=== PATIENT | female | born 1980 | race Caucasian/White ===

== ENCOUNTER → 2020-02-09 | Outpatient (CLI) | payer MEDICAID, OTHER ==
[~2020-02-09] MED LIST: ACDPT; HYDR1TAB PO; IBP600T1 PO; MTR250T PO; MUPI1OIN5 NS; OXYC-12 PO; PREN1TAB39 PO; PREN1TAB64; TERC45CR VG; ZLP10T PO
--- NOTE | 2020-02-09 16:53 | Diagnostic Imaging Report ---
EXAM: FACIAL BONES 3 VIEW OR MORE INDICATION: Left orbital edema. COMPARISON: None. FINDINGS: No fracture or malalignment. No suspicious osteoblastic or lytic lesions. The paranasal sinuses are well aerated. No radiopaque foreign bodies. IMPRESSION: Negative facial bone radiographs. Dictated by: Dictated on workstation # [id number]
--- NOTE | 2020-02-09 16:53 | Diagnostic Imaging Report ---
EXAM: CERVICAL SPINE 3 VIEW OR LESS INDICATION: Neck pain. COMPARISON: None. FINDINGS: Normal alignment. Vertebral body heights preserved. No fractures. Normal prevertebral soft tissues. Minimal degenerative endplate changes. IMPRESSION: Minimal spondylotic changes in the cervical spine. No acute radiographic findings. Dictated by: Dictated on workstation # [id number]
== END ==
LOC: RAD FS 15:49
PROVIDERS: ATTEND Nurse Practitioner
DX: M47.892 Other spondylosis, cervical region (principal); H05.222 Edema of left orbit; S09.92XA Unspecified injury of nose, initial encounter; R68.84 Jaw pain; Z91.410 Personal history of adult physical and sexual abuse
CPT/HCPCS: 70150; 72040

== ENCOUNTER 2020-03-27 10:22 | Emergency (ER) | payer MEDICAID, OTHER ==
[~2020-03-27] VITALS: Ht 170.2 cm; Wt 86.2 kg
[2020-03-27] MEDS ORDERED: NS IV 1000 ML 1,000 ML IV SCH (11:00)
[2020-03-27] MEDS ORDERED: KETOROLAC 30 MG/ML VIAL IVP ONE (11:00)
[2020-03-27] MEDS ORDERED: HYDROcodone/APAP 5 MG/325 MG (LORTAB) TAB PO ONE (11:00)
[2020-03-27 11:21] LABS: HEMATOCRIT 38 % (35-52); HEMOGLOBIN 12.7 G/DL (11.5-16.0); MEAN CORPUSCULAR HEMOGLOBIN 29 PG (25-34); MEAN CORPUSCULAR VOLUME 88 FL (80-99); WHITE BLOOD COUNT 11.3 10^3/uL (4.3-11.0)
[2020-03-27 11:22] LABS: BASOPHILS # (AUTO) 0.1 10^3/uL (0.0-0.1); BASOPHILS % (AUTO) 1 % (0-10); EOSINOPHILS # (AUTO) 0.2 10^3/uL (0.0-0.3); EOSINOPHILS % (AUTO) 2 % (0-10); LYMPHOCYTES # (AUTO) 1.9 X 10^3 (1.0-4.0); LYMPHOCYTES % (AUTO) 17 % (12-44); MEAN CORPUSCULAR HGB CONC 33 G/DL (32-36); MEAN PLATELET VOLUME 10.6 FL (7.4-10.4); MONOCYTES # (AUTO) 1.1 X 10^3 (0.0-1.0); MONOCYTES % (AUTO) 10 % (0-12); NEUTROPHILS % (AUTO) 70 % (42-75); PLATELET COUNT 180 10^3/uL (130-400)
--- NOTE | 2020-03-27 11:29 | ED General ---
General Chief Complaint: Oral/Throat Problems Stated Complaint: SAUNDRA FOOT PAIN; SORE THROAT Nursing Triage Note: Patient reports sudden onset of generalized joint aches, generalized weakness, chills, sore throat, nasal congestion/drainage, and cough 2 days ago. She denies any recent sick contacts. Nursing Sepsis Screen: No Definite Risk History of Present Illness Date Seen by Provider: Mar 27, 2020 Time Seen by Provider: 11:25 Initial Comments Patient presenting to the emergency department for evaluation of multiple complaints including generalized arthralgias myalgias cough sore throat chills and generalized weakness. She said all the symptoms started Wednesday evening approximately 36 hours ago and have persisted. She says she has having difficulty walking as she has pain in her right foot as well as her left ankle. She denies any known trauma or overuse. She has had no measured fevers and she denies any shortness of breath chest pain production to her cough nausea vomiting diarrhea headache neck stiffness or dysuria. She does have an approximate 2 x 2 centimeter reddish adolfo on the top of her right foot that appears to be possible bite wound with surrounding cellulitis that she says is painful to palpation and she says it is making her foot hurt more. And she also appears to have some bite wounds around her left Achilles tendon that she says she has been itching it. She says she cannot go to work because it is too painful to walk. She denies having any medical problems and says that her only medication is an antidepressant. She is in no obvious distress with normal vital signs including a heart rate of 80 and oxygen saturation of 100%. Allergies and Home Medications Allergies Coded Allergies: Moxifloxacin (Unverified Allergy, Unknown, 01/13/10) Home Medications Ibuprofen 600 Mg Tab, 600 MG PO Q6H, (Reported) 1 tab p.o. every 6 hrs as needed for pain. Oxycodone Hcl/Acetaminophen 1 Each Tablet, 1-2 EACH PO Q 4-6HRS, (Reported) 1-2 TAB P.O. EVERY 4-6 HRS NEEDED FOR PAIN. Vits W-Ca,Fe,Fa(<1MG) 1 Each Tablet, 1 EACH PO DAILY, (Reported) Zolpidem Tartrate 10 Mg Tab, 10 MG PO HS, (Reported) Patient Home Medication List Home Medication List Reviewed: Yes Review of Systems Review of Systems Constitutional: chills, malaise, weakness EENTM: nose congestion, throat pain Respiratory: cough Cardiovascular: no symptoms reported Gastrointestinal: no symptoms reported Genitourinary: no symptoms reported Musculoskeletal: joint pain, muscle pain Skin: lesions, lumps Psychiatric/Neurological: No Symptoms Reported All Other Systems Reviewed Negative Unless Noted: Yes Past Htlrwbf-Vnzasz-Dvfhny Hx Patient Social History Alcohol Use: Denies Use Smoking Status: Never a Smoker 2nd Hand Smoke Exposure: No Recent Infectious Disease Expo: No Recent Hopitalizations: No Seasonal Allergies Seasonal Allergies: No Past Medical History Surgeries: Yes Section Respiratory: No Cardiac: No Neurological: No Reproductive Disorders: No Genitourinary: No Gastrointestinal: No Musculoskeletal: No Endocrine: No HEENT: No Cancer: No Psychosocial: No Integumentary: No Blood Disorders: No Physical Exam Vital Signs Vital Signs - First Documented 03/27/20 10:27 Temp 36.2 Pulse 79 Resp 18 B/P (MAP) 126/78 (94) Pulse Ox 98 O2 Delivery Room Air Capillary Refill : Less Than 3 Seconds Height, Weight, BMI Height: '" Weight: lbs. oz. kg; 29.00 BMI Method: General Appearance: No Apparent Distress, WD/WN HEENT: PERRL/EOMI, TMs Normal, Pharynx Normal (Tonsils are both present and prominent however they are not erythematous or have purulence on it and her pharynx appeared normal) Respiratory: Lungs Clear, No Respiratory Distress Cardiovascular: Regular Rate, Rhythm Gastrointestinal: Non Tender, Soft Extremity: Normal Capillary Refill, Normal Range of Motion Neurologic/Psychiatric: Alert, Oriented x3 Skin: Warm/Dry, Other (2 x 2 centimeter area of erythema on the top of the right foot that is painful to palpation but not indurated or particularly hard. 3 small nonvesicular lesions on the left Achilles region that do not appear to be infected) Progress/Results/Core Measures Suspected Sepsis Recent Fever Within 48 Hours: Yes Infection Criteria Present: Suspected New Infection New/Unexplained Altered Menta: No Sepsis Screen: No Definite Risk SIRS Temperature: Pulse: 79 Respiratory Rate: 18 Laboratory Tests 03/27/20 11:00: White Blood Count 11.3H Blood Pressure 126 /78 Mean: 94 Laboratory Tests 03/27/20 11:00: Creatinine 0.77, Platelet Count 180, Total Bilirubin 0.5 Results/Orders Lab Results Laboratory Tests Test 03/27/20 11:00 03/27/20 11:05 03/27/20 11:15 Range/Units White Blood Count 11.3 H 4.3-11.0 10^3/uL Red Blood Count 4.34 L 4.35-5.85 10^6/uL Hemoglobin 12.7 11.5-16.0 G/DL Hematocrit 38 35-52 % Mean Corpuscular Volume 88 80-99 FL Mean Corpuscular Hemoglobin 29 25-34 PG Mean Corpuscular Hemoglobin Concent 33 32-36 G/DL Red Cell Distribution Width 12.8 10.0-14.5 % Platelet Count 180 130-400 10^3/uL Mean Platelet Volume 10.6 H 7.4-10.4 FL Immature Granulocyte % (Auto) 0 % Neutrophils (%) (Auto) 70 42-75 % Lymphocytes (%) (Auto) 17 12-44 % Monocytes (%) (Auto) 10 0-12 % Eosinophils (%) (Auto) 2 0-10 % Basophils (%) (Auto) 1 0-10 % Neutrophils # (Auto) 8.0 H 1.8-7.8 X 10^3 Lymphocytes # (Auto) 1.9 1.0-4.0 X 10^3 Monocytes # (Auto) 1.1 H 0.0-1.0 X 10^3 Eosinophils # (Auto) 0.2 0.0-0.3 10^3/uL Basophils # (Auto) 0.1 0.0-0.1 10^3/uL Immature Granulocyte # (Auto) 0.0 0.0-0.1 10^3/uL Sodium Level 135 135-145 MMOL/L Potassium Level 3.2 L 3.6-5.0 MMOL/L Chloride Level 97 L 98-107 MMOL/L Carbon Dioxide Level 30 21-32 MMOL/L Anion Gap 8 5-14 MMOL/L Blood Urea Nitrogen 10 7-18 MG/DL Creatinine 0.77 0.60-1.30 MG/DL Estimat Glomerular Filtration Rate > 60 BUN/Creatinine Ratio 13 Glucose Level 104 70-105 MG/DL Calcium Level 9.3 8.5-10.1 MG/DL Corrected Calcium 9.5 8.5-10.1 MG/DL Total Bilirubin 0.5 0.1-1.0 MG/DL Aspartate Amino Transf (AST/SGOT) 18 5-34 U/L Alanine Aminotransferase (ALT/SGPT) 19 0-55 U/L Alkaline Phosphatase 68 40-136 U/L Total Protein 7.2 6.4-8.2 GM/DL Albumin 3.8 3.2-4.5 GM/DL Group A Streptococcus Screen NEGATIVE NEGATIVE Urine Color YELLOW Urine Clarity SLT CLOUDY Urine pH 6.0 5-9 Urine Specific Platter 1.020 1.016-1.022 Urine Protein NEGATIVE NEGATIVE Urine Glucose (UA) NEGATIVE NEGATIVE Urine Ketones NEGATIVE NEGATIVE Urine Nitrite NEGATIVE NEGATIVE Urine Bilirubin NEGATIVE NEGATIVE Urine Urobilinogen 0.2 < = 1.0 MG/DL Urine Leukocyte Esterase NEGATIVE NEGATIVE Urine RBC (Auto) NEGATIVE NEGATIVE Urine RBC RARE /HPF Urine WBC 2-5 /HPF Urine Squamous Epithelial Cells 2-5 /HPF Urine Crystals NONE /LPF Urine Bacteria TRACE /HPF Urine Casts NONE /LPF Urine Mucus SMALL H /LPF Urine Culture Indicated NO Urine Test NEGATIVE NEGATIVE Urine Opiates Screen NEGATIVE NEGATIVE Urine Oxycodone Screen NEGATIVE NEGATIVE Urine Methadone Screen NEGATIVE NEGATIVE Urine Propoxyphene Screen NEGATIVE NEGATIVE Urine Barbiturates Screen NEGATIVE NEGATIVE Ur Tricyclic Antidepressants Screen NEGATIVE NEGATIVE Urine Phencyclidine Screen NEGATIVE NEGATIVE Urine Amphetamines Screen POSITIVE H NEGATIVE Urine Methamphetamines Screen POSITIVE H NEGATIVE Urine Benzodiazepines Screen NEGATIVE NEGATIVE Urine Cocaine Screen NEGATIVE NEGATIVE Urine Cannabinoids Screen NEGATIVE NEGATIVE My Orders Orders - LAONA FIGUEROA DO Iv/Invasive Line Insertion .IV start (03/27/20 10:56) Cbc With Automated Diff (03/27/20 10:56) Comprehensive Metabolic Panel (03/27/20 10:56) Drug Screen Stat (Urine) (03/27/20 10:56) Hcg,Qualitative Urine (03/27/20 10:56) Ua Culture If Indicated (03/27/20 10:56) Rapid Strep A Screen (03/27/20 10:56) Chest 1 View Ap/Pa Only (03/27/20 10:56) Foot 3 View Right (03/27/20 10:56) Ankle 3 View Left (03/27/20 10:56) Ketorolac Injection (Toradol Injection) (03/27/20 11:00) Ns Iv 1000 Ml (Sodium Chloride 0.9%) (03/27/20 11:00) Hydrocodone/Apap 5/325 Tablet (Lortab 5 (03/27/20 11:00) Coronavirus Sars-Cov-2 So 2019 (03/27/20 11:06) Medications Given in ED Current Medications Medications Dose Ordered Sig/Eyad Route Start Time Stop Time Status Last Admin Dose Admin Acetaminophen/ Hydrocodone Bitart 2 tab ONCE ONCE PO 03/27/20 11:00 03/27/20 11:01 DC 03/27/20 11:11 2 TAB Ketorolac Tromethamine 15 mg ONCE ONCE IVP 03/27/20 11:00 03/27/20 11:01 DC 03/27/20 11:11 15 MG Vital Signs/I&O 03/27/20 10:27 Temp 36.2 Pulse 79 Resp 18 B/P (MAP) 126/78 (94) Pulse Ox 98 O2 Delivery Room Air Capillary Refill : Less Than 3 Seconds Blood Pressure Mean: 94 Progress Note : Progress Note Patient with multiple nonspecific symptoms which are most likely consistent with a viral syndrome in my opinion but will check labs imaging treat symptoms and reassess. Patient does have mild leukocytosis and possibly an early cellulitis on her foot so we will start her on Keflex for this. I told her that her potassium is low and discussed all other incidental findings and need for primary care follow-up. Patient told to follow-up primary care provider within 2 to 3 days and come back to emergency department sooner with worsening pain fevers vomiting or other general concerns. Patient aware and agreeable with plan and verbalized understanding of the above instructions. Departure Impression Primary Impression: Cellulitis of foot without toes, right Additional Impressions: Viral syndrome Leukocytosis Disposition: 01 HOME, SELF-CARE Condition: Stable Departure-Patient Inst. Referrals: LESLY SHEIKH (PCP) Primary Care Physician NO,LOCAL PHYSICIAN (Family) Primary Care Physician Patient Instructions: Cellulitis (Skin Infection), Adult ED Scripts Cephalexin (Cephalexin) 500 Mg Tablet 500 MG PO TID for 7 Days, TAB Prov: ALONA FIGUEROA DO 03/27/20 ALONA FIGUEROA DO Mar 27, 2020 11:29
[2020-03-27 11:39] LABS: HCG,QUALITATIVE URINE NEGATIVE (NEGATIVE)
[2020-03-27 11:45] LABS: CLARITY,URINE SLT CLOUDY; COLOR,URINE YELLOW; GLUCOSE, URINE (UA) NEGATIVE (NEGATIVE); KETONES,URINE NEGATIVE (NEGATIVE); NITRITE,URINE NEGATIVE (NEGATIVE); PROTEIN,URINE NEGATIVE (NEGATIVE)
[2020-03-27 11:46] LABS: BACTERIA,URINE TRACE /HPF; BILIRUBIN,URINE NEGATIVE (NEGATIVE); LEUKOCYTE ESTERASE ,URINE NEGATIVE (NEGATIVE); RBC,URINE RARE /HPF
[2020-03-27 11:47] LABS: AMPHETAMINE SCREEN, URINE POSITIVE (NEGATIVE); BARBITURATE SCREEN URINE NEGATIVE (NEGATIVE); BENZODIAZEPINES SCREEN URINE NEGATIVE (NEGATIVE); CANNABINOID SCREEN, URINE NEGATIVE (NEGATIVE); COCAINE SCREEN URINE NEGATIVE (NEGATIVE); METHADONE STAT NEGATIVE (NEGATIVE); METHAMPHETAMINE SCREEN URINE S POSITIVE (NEGATIVE); OPIATE SCREEN URINE NEGATIVE (NEGATIVE); OXYCODONE STAT NEGATIVE (NEGATIVE); PROPOXYPHENE STAT NEGATIVE (NEGATIVE); TRICYCLIC ANTIDEPRESSANTS SCRE NEGATIVE (NEGATIVE)
[2020-03-27 11:49] LABS: ALANINE AMINOTRANSFERASE 19 U/L (0-55); ALKALINE PHOSPHATASE 68 U/L (40-136); BILIRUBIN,TOTAL 0.5 MG/DL (0.1-1.0); BUN/CREATININE RATIO 13; CALCIUM 9.3 MG/DL (8.5-10.1); CARBON DIOXIDE 30 MMOL/L (21-32); CHLORIDE 97 MMOL/L (98-107); CREATININE SERUM 0.77 MG/DL (0.60-1.30); GFR ESTIMATED > 60; GLUCOSE 104 MG/DL (70-105); POTASSIUM 3.2 MMOL/L (3.6-5.0); SODIUM 135 MMOL/L (135-145); TOTAL PROTEIN 7.2 GM/DL (6.4-8.2)
[2020-03-27 11:50] LABS: ALBUMIN 3.8 GM/DL (3.2-4.5)
--- NOTE | 2020-03-27 12:15 | Diagnostic Imaging Report ---
INDICATION: Cough. TIME OF EXAM: 11:20 AM. COMPARISON: No prior studies are available for comparison. FINDINGS: The heart size is normal. The pulmonary vascularity is unremarkable. The lungs are clear. No infiltrate, effusion, or pneumothorax is detected. IMPRESSION: No acute cardiopulmonary process is detected. Dictated by: Dictated on workstation # [id number]
--- NOTE | 2020-03-27 12:25 | Diagnostic Imaging Report ---
CLINICAL INDICATIONS: Patient with right foot pain. No known injury. EXAM: X-ray of the right foot, 3 views. COMPARISON: None. There is no acute fracture or dislocation. There is a chronic calcification seen distal to the medial malleolar region. There is minimal spurring of the 1st MTP joint. Remainder of the right foot is unremarkable. IMPRESSION: 1: There is no acute fracture or dislocation. 2: There are chronic calcifications seen inferiorly adjacent to the medial malleolus region. 3: Minimal degenerative disease of the 1st MTP joint. Dictated by: Dictated on workstation # [id number]
--- NOTE | 2020-03-27 12:25 | Diagnostic Imaging Report ---
CLINICAL INDICATION: Patient with pain in the left ankle and foot. No known injury. EXAMS: X-ray of the left ankle, three views. COMPARISON: None. FINDINGS: There is no acute fracture or dislocation. There is mild swelling about the ankle of unknown etiology. The ankle mortise and syndesmotic joints are unremarkable. There are no significant degenerative changes. IMPRESSION: 1: There is no acute fracture or dislocation. There is nonspecific mild swelling about the ankle. Dictated by: Dictated on workstation # [id number]
[2020-03-27] MEDS ORDERED: CEPH500T PO (12:33)
[2020-03-27 13:00] VITALS: BP 107/64
== END 2020-03-27 13:00 | disposition home or self-care (01) ==
LOC: EDUNIT# 10:22 → ER FS 10:25
DX: L03.115 Cellulitis of right lower limb (principal); B34.9 Viral infection, unspecified; D72.829 Elevated white blood cell count, unspecified; Z88.1 Allergy status to other antibiotic agents; Z20.822 Contact with and (suspected) exposure to COVID-19
CPT/HCPCS: 36415; 71045; 73610; 73630; 80053; 80306; 81000; 84703; 85025; 87430; U0002; 87635

== ENCOUNTER 2020-10-25 04:13 | Emergency (ER) | payer MEDICAID ==
[~2020-10-25] VITALS: Ht 170.2 cm; Wt 72.6 kg
[~2020-10-25 04:13] MED LIST changes: +CEPH500T PO
[2020-10-25] MEDS ORDERED: MIDAZOLAM 10 MG/2 ML (VERSED) VIAL ONE (04:44)
[2020-10-25] MEDS ORDERED: LORazepam INJ 2 MG/ML (ATIVAN) VIAL IVP ONE (04:45)
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
[2020-10-25 05:11] LABS: HEMATOCRIT 39 % (35-52); HEMOGLOBIN 13.4 g/dL (11.5-16.0); MEAN CORPUSCULAR HEMOGLOBIN 29 pg (25-34); MEAN CORPUSCULAR VOLUME 85 fL (80-99); WHITE BLOOD COUNT 18.9 10^3/uL (4.3-11.0)
[2020-10-25 05:12] LABS: BASOPHILS % (AUTO) 1 % (0-10); EOSINOPHILS % (AUTO) 1 % (0-10); LYMPHOCYTES % (AUTO) 22 % (12-44); MEAN CORPUSCULAR HGB CONC 35 g/dL (32-36); MEAN PLATELET VOLUME 10.7 fL (9.0-12.2); MONOCYTES % (AUTO) 9 % (0-12); NEUTROPHILS % (AUTO) 67 % (42-75); PLATELET COUNT 403 10^3/uL (130-400)
[2020-10-25 05:13] LABS: BASOPHILS # (AUTO) 0.1 10^3/uL (0.0-0.1); EOSINOPHILS # (AUTO) 0.1 10^3/uL (0.0-0.3); LYMPHOCYTES # (AUTO) 4.2 X 10^3 (1.0-4.0); MONOCYTES # (AUTO) 1.7 X 10^3 (0.0-1.0); NEUTROPHILS # (AUTO) 12.6 X 10^3 (1.8-7.8)
[2020-10-25 05:26] LABS: ALANINE AMINOTRANSFERASE 30 U/L (0-55); ALKALINE PHOSPHATASE 82 U/L (40-136); BILIRUBIN,TOTAL 0.6 MG/DL (0.1-1.0); BUN/CREATININE RATIO 29; CALCIUM 10.4 MG/DL (8.5-10.1); CARBON DIOXIDE 22 MMOL/L (21-32); CHLORIDE 103 MMOL/L (98-107); CREATININE SERUM 1.01 MG/DL (0.60-1.30); GFR ESTIMATED 60; GLUCOSE 88 MG/DL (70-105); POTASSIUM 3.7 MMOL/L (3.6-5.0); SODIUM 140 MMOL/L (135-145); TOTAL PROTEIN 8.5 GM/DL (6.4-8.2)
[2020-10-25 05:27] LABS: ALBUMIN 4.7 GM/DL (3.2-4.5); SALICYLATE 0.7 MG/DL (5.0-20.0)
[2020-10-25 05:28] LABS: ACETAMINOPHEN < 10 UG/ML (10-30)
[2020-10-25 05:48] LABS: ATYPICAL LYMPHOCYTES 2 %; EOSINOPHILS % (MANUAL) 1 %; LYMPHOCYTES % (MANUAL) 16 %; METAMYELOCYTES % 1 %; MONOCYTES % (MANUAL) 11 %; NEUTROPHILS % (MANUAL) 69 %; PLATELET ESTIMATE ADEQUATE
[2020-10-25 05:49] LABS: RBC MORPH NORMAL
[2020-10-25 08:35] VITALS: BP 110/80
== END 2020-10-25 08:35 | disposition home or self-care (01) ==
LOC: EDUNIT# 04:13 → ER FS 04:17
DX: F15.90 Other stimulant use, unspecified, uncomplicated (principal); F15.929 Other stimulant use, unspecified with intoxication, unspecified
CPT/HCPCS: 36415; 80053; 85007; 85027; 93005; 93041; 99284; G0480 ×3; 80320; 80329; 96374